=== PATIENT | male | born 1995 | race American Indian/Alaskan Native ===

== ENCOUNTER 2022-02-24 13:41 | Emergency (ER) | payer SELFPAY ==
--- NOTE | 2022-02-24 15:10 | XRay Report ---
LEFT HAND 4 VIEW(S) INDICATION / CLINICAL INFORMATION: injury COMPARISON: None available. FINDINGS: BONES / JOINT(S): Oblique/spiral type fracture involving the midshaft of the pinky finger proximal ph alanx. No significant displacement or angulation. No significant arthritis. SOFT TISSUES: Soft tissue swelling about the pinky finger. ADDITIONAL FINDINGS: None. Signer Name: Robles Kapoor MD Signed: 02/24/2022 3:06 PM Workstation Name: [email or web address]
--- NOTE | 2022-02-24 15:57 | Emergency Department Report ---
Upper Extremity - HPI Chief Complaint: Extremity Injury, Upper Stated Complaint: FINGER INJURY Time Seen by Provider: 02/24/22 15:26 Upper Extremity: Left Little Finger Occurred When: 1 Day Mechanism: Crush (Hit with a basketball while playing basketball game yesterday) Severity: mild Symptoms: Yes Pain with Movement, Yes Limited Range of Movement, Yes Swelling, No Deformity, No Numbness, No Weakness, No Bruising/Ecchymosis, No Laceration or Abrasion ED Review of Systems ROS: Stated complaint: FINGER INJURY Other details as noted in HPI Comment: All other systems reviewed and negative Constitutional: denies: chills, fever Respiratory: denies: shortness of breath Cardiovascular: denies: chest pain Gastrointestinal: denies: abdominal pain, nausea, vomiting Musculoskeletal: denies: back pain Neurological: denies: headache, weakness ED Past Medical Hx - Past Medical History Previous Medical History?: No Upper Extremity Exam - Exam General: Vital signs noted. No distress. Alert and acting appropriately. Head and Torso: No HEENT Abnormality, No Neck Tenderness, No Chest/Lungs Abnormality, No Abdominal Tenderness, No Back Tenderness Shoulder Exam: No Shoulder Tenderness, No Clavicle Tenderness, No Normal Range of Motion in Shoulder, No Shoulder Deformity, No AC Joint Tenderness Arm Exam: No Arm/Humerus Tenderness, No Arm Deformity Elbow: No Elbow Tenderness, No Normal Range of Motion in Elbow, No Elbow Deformity Forearm: No Forearm Tenderness, No Forearm Deformity, No Pain with Pronation, No Pain with Supination Wrist: No Wrist Tenderness, No Normal ROM in Wrist, No Wrist Deformity, No Snuffbox Tenderness, No Pain with Axial Thumb Compression Hand: Yes Digit Tenderness (Left fifth), Yes Digit(s) Deformity, No Hand Tenderness, No Hand Deformity, No Normal ROM in Digit(s) (Decreased in left fifth), No Tendon Dysfunction CMS Exam: Yes Normal Distal Pulses, Yes Normal Capillary Refill, Yes Normal Distal Sensation, No Broken Skin ED Course Vital Signs 02/24/22 14:35 Pulse Rate 61 Respiratory 16 Rate Blood Pressure 124/81 O2 Sat by Pulse 99 Oximetry ED Medical Decision Making - Radiology Data Radiology results: report reviewed, image reviewed Left hand x-ray: FINDINGS: BONES / JOINT(S): Oblique/spiral type fracture involving the midshaft of the pinky finger proximal phalanx. No significant displacement or angulation. No significant arthritis. SOFT TISSUES: Soft tissue swelling about the pinky finger. ADDITIONAL FINDINGS: None. - Medical Decision Making Left hand x-ray positive for spiral fracture to left fifth digit proximal phalanx. Patient will be placed in aluminum splint with Jef wrap for security. He is advised to take Tylenol as needed for pain, use intermittent cold therapy, and follow-up with orthopedics if no improvement or worsening symptoms. He verbalized understanding of and agreement with plan of care. Critical care attestation.: If time is entered above; I have spent that time in minutes in the direct care of this critically ill patient, excluding procedure time. ED Disposition Clinical Impression: Finger fracture, left Qualifiers: Encounter type: initial encounter Finger: little finger Fracture type: closed Phalanx: proximal Fracture alignment: nondisplaced Qualified Code(s): S62.647A - Nondisplaced fracture of proximal phalanx of left little finger, initial encounter for closed fracture Disposition: 01 HOME / SELF CARE / HOMELESS Is pt being admited?: No Does the pt Need Aspirin: No Condition: Stable Instructions: Finger Fracture, Adult, [id number], Cast or Splint Care, Adult, [id number], How to Use Cold Therapy, [id number] Additional Instructions: Keep splint in place for the next several days. Use cold therapy several times daily for the next few days. Use Tylenol as needed for pain. Follow-up with orthopedics if no improvement or worsening symptoms. Referrals: PRIMARY MD AYAZ [Primary Care Provider] - 3-5 Days MAYO ALEGRIA MD [Staff Physician] - 3-5 Days Forms: Work/School Release Form(ED) Time of Disposition: 16:28
[2022-02-24 17:05] VITALS: BP 120/80
== END 2022-02-24 17:06 | disposition home or self-care (01) ==
LOC: ED 13:41
DX: S62.607A Fracture of unspecified phalanx of left little finger, initial encounter for closed fracture (principal); X58.XXXA Exposure to other specified factors, initial encounter; Y93.89 Activity, other specified; Y92.89 Other specified places as the place of occurrence of the external cause; Y99.8 Other external cause status
CPT/HCPCS: 99283